=== PATIENT | male | born 1955 | race African-American/Black ===

== ENCOUNTER 2020-05-03 00:41 | Outpatient (CLI) | payer OTHER, SELFPAY ==
[2020-05-03 21:18] LABS: SARS-CoV-2 RNA PCR Negative
== END 2020-05-03 00:42 | disposition home or self-care (01) ==
LOC: ANHCOVIDDT 00:41
PROVIDERS: PCP Internal Medicine; Visit Provider Internal Medicine Gastroenterology
DX: Z01.812 Encounter for preprocedural laboratory examination (principal); Z20.828 Contact with and (suspected) exposure to other viral communicable diseases
CPT/HCPCS: 87635; C9803; U0003

== ENCOUNTER 2020-05-07 02:04 | Day surgery (SDC) | payer OTHER, SELFPAY ==
[2020-04-30 12:55] VITALS: BMI 33.2
--- NOTE | 2020-05-07 06:57 | WPDANESEPPF ---
Anes - Initial Pre Proc Eval Procedure: Operation Date: 05/07/20 09:00 Proposed Procedures p Screening Colonoscopy - Kevin Parnell MD Date/Time: 05/07/20 06:57 Surgeon: Kevin Parnell MD Pre Op Diagnosis: Neoplasm Screening Patient Data Age: 65 Gender: M Height: 1.83 m Weight: 111 kg Allergies Allergy/AdvReac Type Severity Reaction Status Date / Time No Known Allergies Allergy Mild Verified 05/07/20 07:50 Home Medications Medication Instructions Recorded Confirmed Type aspirin 81 mg tablet,delayed 81 mg PO DAILY 07/05/19 04/30/20 History release amlodipine 10 mg tablet 10 mg PO DAILY #90 tablet 12/19/19 04/30/20 Rx atorvastatin 40 mg tablet 40 mg PO DAILY #90 tablet 12/19/19 04/30/20 Rx glipizide 5 mg tablet 5 mg PO DAILY #90 tablet 12/19/19 04/30/20 Rx lisinopril 40 mg tablet 40 mg PO DAILY #90 tablet 12/19/19 04/30/20 Rx blood sugar diagnostic #100 each 02/12/20 03/18/20 Rx clonidine 0.2 mg/24 hr weekly 1 patch TRANSDERM WEEKLY #4 each 03/18/20 04/30/20 Rx transdermal patch ertugliflozin 5 mg tablet 5 mg PO QAM #30 tablet 03/18/20 04/30/20 Rx tadalafil 5 mg tablet 5 mg PO DAILY PRN 03/18/20 04/30/20 History metoprolol tartrate 100 mg tablet 100 mg PO Q12H #180 tablet 04/02/20 04/30/20 Rx peg 3350 240 gram-electrolytes 240 ml PO Q10M #4000 ml 04/04/20 Rx 22.72 gram-6.72 g-5.84 g powdr for soln furosemide 40 mg PO DAILY 04/30/20 04/30/20 History semaglutide [Rybelsus] 3 mg PO DAILY 04/30/20 04/30/20 History Patient hx anesthesia problems: none Family hx anesthesia problems: none PMFSH Past Medical History Medical History (Updated 05/07/20 @ 06:58 by Lyndon Moreno MD) BPH (benign prostatic hyperplasia) Cerebrovascular accident (CVA) Dyslipidemia associated with type 2 diabetes mellitus Obesity TSERING (obstructive sleep apnea) Resistant hypertension Type 2 diabetes mellitus without complication, without long-term current use of insulin Family History Family History Mother Diabetes mellitus, Onset Age: 67 Social History Social History Smoking status: Never smoker Alcohol intake: never Substance use: never Substance use type: does not use Living arrangements: with family Spiritual care concerns: No Anes - Eval Final PreProcedure Day of Procedure 05/07/20 06:57 Patient weight: obese Heart: regular rate and rhythm Lungs: clear to auscultation and normal air movement Airway: Mallampati scale class II Neurological: alert and oriented Last oral intake: >/= 8 hours ASA classification: III Emergent: no Anesthetic plan: proceed Anesthesia type and monitoring: general GIVS Informed Consent: The patient's anesthetic plan and its attendant risks and benefits were discussed with the patient/family/POA. Questions were solicited and answers provided to the satisfaction of the patient/family/POA.
[2020-05-07 07:52] VITALS: BP 178/93; PULSE 83; RESP 16; TEMP 37.1; O2SAT 100; BMI 33.0
[2020-05-07] MEDS: LACTATED RINGERS 1,000 ML 150 ML IV CONT (08:16)
[2020-05-07 08:21] LABS: Glucose Point of Care 162 (65-105)
--- NOTE | 2020-05-07 09:08 | PM.HPGS ---
History of Present Illness History of Present Illness Consent: Risks, benefits, and alternatives have been discussed and questions answered. Patient agrees to proceed with procedure. Chief complaint: Neoplasm Screening Narrative: Ron Kwon is a 65 year old male with history of colon polyps, due to have another colonoscopy Review of Systems Constitutional: Constitutional: Denies headache(s) and Denies weakness Eyes: Eyes: Denies blurry vision ENT: Reports Normal hearing present, Denies headache(s) and Denies neck pain Cardiovascular: Cardiovascular: Denies chest pain and Denies dyspnea Respiratory: Respiratory: Denies dyspnea Gastrointestinal: Gastrointestinal: Reports no additional gastrointestinal complaints Genitourinary: Genitourinary: Denies dysuria Musculoskeletal: Musculoskeletal: Denies neck pain Integumentary/Breasts: Skin/Breast: Denies dry skin Neurologic: Reports Normal hearing present, Denies headache(s) and Denies weakness Psychiatric: Psychiatric: Denies anxiety Endocrine: Endocrine: Denies change in body appearance Hematologic/Lymphatic: Hematologic/Lymphatic: Denies easy bleeding Allergic/Immunologic: Allergic/Immunologic: Denies urticaria PMFSH Past Medical History Medical History (Updated 05/07/20 @ 09:08 by Kevin Parnell MD) Adenomatous colon polyp BPH (benign prostatic hyperplasia) Cerebrovascular accident (CVA) Dyslipidemia associated with type 2 diabetes mellitus Obesity TSERING (obstructive sleep apnea) Resistant hypertension Type 2 diabetes mellitus without complication, without long-term current use of insulin Family History Family History Mother Diabetes mellitus, Onset Age: 67 Social History Social History Smoking status: Never smoker Alcohol intake: never Substance use: never Substance use type: does not use Living arrangements: with family Spiritual care concerns: No Meds Home Medications and Allergies Home Medications Medication Instructions Recorded Confirmed Type aspirin 81 mg tablet,delayed 81 mg PO DAILY 07/05/19 04/30/20 History release amlodipine 10 mg tablet 10 mg PO DAILY #90 tablet 12/19/19 04/30/20 Rx atorvastatin 40 mg tablet 40 mg PO DAILY #90 tablet 12/19/19 04/30/20 Rx glipizide 5 mg tablet 5 mg PO DAILY #90 tablet 12/19/19 04/30/20 Rx lisinopril 40 mg tablet 40 mg PO DAILY #90 tablet 12/19/19 04/30/20 Rx blood sugar diagnostic #100 each 02/12/20 03/18/20 Rx clonidine 0.2 mg/24 hr weekly 1 patch TRANSDERM WEEKLY #4 each 03/18/20 04/30/20 Rx transdermal patch ertugliflozin 5 mg tablet 5 mg PO QAM #30 tablet 03/18/20 04/30/20 Rx tadalafil 5 mg tablet 5 mg PO DAILY PRN 03/18/20 04/30/20 History metoprolol tartrate 100 mg tablet 100 mg PO Q12H #180 tablet 04/02/20 04/30/20 Rx peg 3350 240 gram-electrolytes 240 ml PO Q10M #4000 ml 04/04/20 Rx 22.72 gram-6.72 g-5.84 g powdr for soln furosemide 40 mg PO DAILY 04/30/20 04/30/20 History semaglutide [Rybelsus] 3 mg PO DAILY 04/30/20 04/30/20 History Allergies Allergy/AdvReac Type Severity Reaction Status Date / Time No Known Allergies Allergy Mild Verified 05/07/20 07:50 Vital Signs Vital Signs - 24 hr 05/07/20 07:52 Temperature 98.8 F Pulse Rate 83 Respiratory Rate 16 Blood Pressure 178/93 H Pulse Oximetry 100 Exam Const: General: comfortable and no acute distress HENMT: General nose exam: Normal nares present Eyes: General: appearance normal, both eyes and all related structures Neck: Neck: no JVD Resp: Auscultation: clear to auscultation bilaterally Cardio: Rate: regular rate Rhythm: regular rhythm GI: Inspection: non-distended GI Palp: Yes Soft to palpation Skin: General skin exam: normal color Neuro: General: gait normal Speech: normal speech Extrem: General: normal to inspection Psych: Mental
[2020-05-07 09:47] VITALS: BP 98/65; PULSE 79; RESP 16; O2SAT 97
[2020-05-07 09:57] VITALS: BP 116/74; PULSE 76; RESP 16; O2SAT 97
[2020-05-07 10:05] VITALS: BP 121/76; PULSE 73; RESP 16; O2SAT 96
== END 2020-05-07 10:26 | disposition home or self-care (01) ==
PROVIDERS: PCP Internal Medicine; Visit Provider Internal Medicine Gastroenterology
PROC: 0DJD8ZZ Inspection of Lower Intestinal Tract, Via Natural or Artificial Opening Endoscopic (ICD-10-PCS; CPT 45378; principal; 2020-05-07 09:00)
DX: Z12.11 Encounter for screening for malignant neoplasm of colon (principal); K63.5 Polyp of colon; E78.5 Hyperlipidemia, unspecified; I10 Essential (primary) hypertension; E11.9 Type 2 diabetes mellitus without complications; G47.33 Obstructive sleep apnea (adult) (pediatric); N40.0 Benign prostatic hyperplasia without lower urinary tract symptoms; Z86.73 Personal history of transient ischemic attack (TIA), and cerebral infarction without residual deficits; E66.9 Obesity, unspecified; Z68.33 Body mass index [BMI] 33.0-33.9, adult; Z79.84 Long term (current) use of oral hypoglycemic drugs; Z79.82 Long term (current) use of aspirin
CPT/HCPCS: 45385; 88305; J2704; J7120

== ENCOUNTER 2020-05-14 14:48 | Outpatient (CLI) | payer OTHER, SELFPAY ==
--- NOTE | ~2020-05-14 | US_ITS ---
EXAMINATION: US renal BI DATE: 05/14/2020 15:22 INDICATION: Stage IIIa chronic kidney disease TECHNIQUE: Multiple ultrasound grayscale images of the kidneys were obtained. COMPARISON: 03/20/2019 FINDINGS: The right kidney measures 11.8 x 5.7 x 5.9 cm. The left kidney measures 11.0 x 5.4 x 5.9 cm. The kidn eys demonstrate normal echogenicity with unchanged mild bilateral cortical thinning. There is no hydr onephrosis in either kidney. No stones identified. The incompletely distended bladder is normal. IMPRESSION: 1. Diffuse mild renal cortical thinning and 1.6 cm anechoic cysts at both the left and right kidneys . No hydronephrosis. Reviewed, dictated and finalized at location . [facility] IMPRESSION: 1. Diffuse mild renal cortical thinning and 1.6 cm anechoic cysts at both the left and right kidneys. No hydronephrosis.
== END 2020-05-14 14:49 ==
PROVIDERS: PCP Internal Medicine; Visit Provider Internal Medicine Nephrology
DX: N18.31 Chronic kidney disease, stage 3a (principal)
CPT/HCPCS: 76775

== ENCOUNTER 2024-11-10 08:53 | Outpatient (CLI) | payer MEDICARE, SELFPAY ==
--- OUTSIDE RECORDS SUMMARY | 2024-11-10 08:56 | XMS_ITS | Clinical Summary ---
Author Organization [facility] Address [address] [place] [id number] Phone Care Team Providers Care Second Language Tutor Name Role Phone Thomas Frost MD Primary Care Provider [phone] Allergies No known active allergies Medications allopurinol (ZYLOPRIM) 100 MG tablet 11/12/2014 Active amLODIPine (NORVASC) 10 MG tablet 03/20/2020 Active glipiZIDE (GLUCOTROL) 5 MG tablet 03/20/2020 Active Contour Next Test test strip 02/12/2020 Act irina lisinopril (PRINIVIL) 40 MG tablet 03/20/2020 Active metFORMIN (GLUMETZA) 500 MG 24 hr tablet Take 1,000 mg by mouth 12/02/2018 Active Rybelsus 3 MG tablet 05/12/2020 Active atorvastatin (LIPITOR) 80 MG tablet Take 80 mg by mouth 1 (one) time each day 10/14/2020 Active D3-50 1.25 MG (59475 UT) capsule TAKE 1 CAPSULE BY MOUTH WEEKLY 09/08/2020 Active metoprolol tartrate (LOPRESSOR) 100 MG tablet 09/29/2020 Active tadalafil (CIALIS) 5 MG tablet Take 5 mg by mouth 1 (one) time each day Active cloNIDine 0.3 MG/24HR patch weekly 05/19/2021 Active furosemide (LASIX) 40 MG tablet Take 1 tablet (40 mg total) by mouth 2 (two) times a day 180 tablet 3 06/01/2021 Active Active Problems Problem Noted Date Diagnosed Date Stage 3a chronic kidney disease 06/19/2020 Type 2 diabetes mellitus without complication Obstructive sleep apnea 04/18/2019 Overview (05/11/2020): Last Assessment & Plan: Reviewed and discussed with the patient his sleep study results. Reviewed with the patient that he has moderate to severe obstructive sleep apnea. Reviewed with the patient treatment with APAP 7-15 cm of water pressure. Discussed with the patient his goal of therapy will be to use the APAP nightly for 7-9 hours and with any naps. Reviewed and discussed risk of untreated sleep apnea to include increased risk of hypertension, heart attack, stroke, irregular heart rhythm, congestive heart failure, diabetes, weight gain and fatigue.. Orders for equipment will be sent to [facility] Home Care. Essential hypertension 03/28/2019 Overview (05/11/2020): Last Assessment & Plan: Reviewed and discussed with the patient his sleep study results. Reviewed with the patient that he has moderate to severe obstructive sleep apnea. Reviewed with the patient treatment with APAP 7-15 cm of water pressure. Discussed with the patient his goal of therapy will be to use the APAP nightly for 7-9 hours and with any naps. Reviewed and discussed risk of untreated sleep apnea to include increased risk of hypertension, heart attack, stroke, irregular heart rhythm, congestive heart failure, diabetes, weight gain and fatigue.. Orders for equipment will be sent to [facility] Home Care. Stroke 03/28/2019 Hypertensive emergency 11/28/2018 Immunizations Immunization Administration Dates Next Due Fluzone High-Dose 04/14/2020 Influenza TIV (IM) 04/03/2018 Pneumococcal Conjugate 02/18/2015 Family History Medical History Relation Comments Kidney disease Neg Hx Social History Tobacco Use Types Packs/Day Years Used Date Smoking Tobacco: Never Smokeless Tobacco: Never Alcohol Use Standard Drinks/Week Comments Not Currently 0 (1 standard drink = 0.6 oz pur e alcohol) Sex and Gender Information Value Date Recorded Sex Assigned at Not on file Legal Sex Male 8:22 AM [facility] Gender Identity Not on file Sexual Orientation Not on file Last Filed Vital Signs Vital Sign Reading Time Taken Comments Blood Pressure 160/84 06/01/2021 11:03 AM DIRECTOR OF COMMUNITY EDUCATION Pulse 72 06/01/2021 11:03 AM DIRECTOR OF COMMUNITY EDUCATION Temperature 36.5 C (97.7 F) 06/01/2021 11:03 AM DIRECTOR OF COMMUNITY EDUCATION Respiratory Rate - - Oxygen Saturation - - Inhaled Oxygen Concentration - - Weight 112 kg (247 lb) 06/01/2021 11:03 AM DIRECTOR OF COMMUNITY EDUCATION Height 182.9 cm (6') 06/01/2021 11:03 AM DIRECTOR OF COMMUNITY EDUCATION Body Mass Index 33.5 06/01/2021 11:03 AM DIRECTOR OF COMMUNITY EDUCATION Plan of Treatment Health Maintenance Due Date Last Done Comments Pneumococcal PPSV23/PCV13 65 + Years / Low and Medium Risk (1 of 4 - PCV) 2003 Influenza Vaccine (Season Ended) 2025 04/03/20 18 [place] [address] Care Teams Second Language Tutor Relationship Specialty Start Date End Date Thomas Frost MD [address] [place] [id number] PCP - General Family Medicine 05/05/20
--- OUTSIDE RECORDS SUMMARY | 2024-11-10 08:56 | XMS_ITS | Clinical Summary ---
Author Organization [facility] Address [address] [place] [address] Care Team Providers Care Career Law Clerk Name Role Phone Manoj Franco NP Primary Care Provider [phone] Allergies No known active allergies Medications atorvastatin (LIPITOR) 40 mg tablet 03/08/2019 Active cloNIDine (CATAPRES-TTS) 0.1 mg/24 hr 02/28/2019 Active amLODIPine (NORVASC) 10 mg tablet 03/08/2019 Active glipiZIDE (GLUCOTROL) 5 mg tablet 03/21/2019 Active furosemide (LASIX) 40 mg tablet 03/08/2019 Active lisinopril (PRINIVIL,ZESTRI L) 20 mg tablet 12/25/2018 Act irina metoprolol (LOPRESSOR) 50 mg tablet 03/19/2019 Active UNABLE TO FIND Asprin Activ e JANUVIA 50 mg tablet 02/28/2019 Active blood glucose diagnostic (ONETOUCH ULTRA BLUE TEST STRIP) strip 10/01/2014 Active aspirin 325 mg tablet Take 325 mg by mouth daily 12/01/2018 Active amlodipine-atorv astatin (CADUET) 10-40 mg per tablet 11/12/2014 Active allopurinol (ZYLOPRIM) 100 mg tablet 11/12/2014 Active Active Problems Problem Noted Date Diagnosed Date Type 2 diabetes mellitus wit hout complication, with long-term current use of insulin 04/24/2019 Other vitreous opacities, bilateral 04/24/2019 Age-related nuclear cataract, bilateral 04/24/20 19 Class 1 obesity due to exces s calories with serious comorbidity and body mass index (BMI) of 32.0 to 32.9 in adult 04/24/2019 Assessment & Plan (04/24/2019 12:28 PM MARKET RESEARCH ASSOCIATE): Reviewed and discussed with the patient his [...] Orders for equipment will be sent to [facility] Home Care. Obstructive sleep apnea 04/18/2019 Assessment & Plan (04/24/2019 12:28 PM MARKET RESEARCH ASSOCIATE): Reviewed and discussed with the patient his [...] Orders for equipment will be sent to [facility] Home Care. Essential hypertension 03/28/2019 Assessment & Plan (04/24/2019 12:28 PM MARKET RESEARCH ASSOCIATE): Reviewed and discussed with the patient his [...] Orders for equipment will be sent to [facility] Home Care. Stroke 03/28/2019 Slurred speech 11/28/2018 Hypertensive emergency 11/28/2018 Facial droop 11/28/2018 Stiffness of joint, hand 11/21/2014 Pseudogout of hand 11/21/2014 Bilateral carpal tunnel syndrome 11/21/2014 Arthritis, wrist 11/21/2014 Resolved Problems Problem Noted Date Diagnosed Date Resolved Date BMI 33.0-33.9,adult 03/28/2019 04/24/20 19 Medical History Medical History Date Comments Diabetes mellitus (HCC) Hypertension Stroke (HCC) 11/2018 Social History Tobacco Use Types Packs/Day Years Used Date Smoking Tobacco: Never Smokeless Tobacco: Never Alcohol Use Standard Drinks/Week Comments Yes 0 (1 standard drink = 0.6 oz pur e alcohol) once a week/ Personal Safety Answer Date Recorded Getting School Help Needed Not on file 07/09 Sex and Gender Information Value Date Recorded Sex Assigned at Not on file Legal Sex Male 4:56 AM MARKET RESEARCH ASSOCIATE Gender Identity Not on file Sexual Orientation Not on file Obstetrics History Last Filed Vital Signs Vital Sign Reading Time Taken Comments Blood Pressure 140/90 04/24/2019 11:51 AM MARKET RESEARCH ASSOCIATE Pulse 73 04/24/2019 11:51 AM MARKET RESEARCH ASSOCIATE Temperature 36.9 C (98.4 F) 04/24/2019 11:51 AM MARKET RESEARCH ASSOCIATE Respiratory Rate 15 04/24/2019 11:51 AM MARKET RESEARCH ASSOCIATE Oxygen Saturation 97% 04/24/2019 11:51 AM MARKET RESEARCH ASSOCIATE Inhaled Oxygen Concentration - - Weight 108.9 kg (240 lb) 04/24/2019 11:51 AM MARKET RESEARCH ASSOCIATE Height 182.9 cm (6') 04/24/2019 11:51 AM MARKET RESEARCH ASSOCIATE Body Mass Index 32.55 04/24/2019 11:51 AM MARKET RESEARCH ASSOCIATE Plan of Treatment Health Maintenance Due Date Last Done Comments Albumin Creatinine Ratio, Urine 1953 Colon Cancer Screening-Colonoscopy 1953 Depression Screening 1953 Fall Risk Assessment 1953 Hepatitis C Screening 1953 Prostate Cancer Screening-PSA 1953 eGFR 1953 Dilated Eye Exam 1953 Foot Exam 1953 DTaP/Tdap/Td Vaccine (1 - Tdap) 01/21/1964 Hepatitis B Screening 1971 Zoster Vaccine (1 of 2) 2003 Lipid Panel 08/11/2014 08/11/2013 Pneumococcal vaccine 65+ (2 of 2 - PPSV23) 04/15/2015 02/18/2015 Abdominal Aortic Aneurysm (A AA) Screen 2018 Well Visit 65+ 2018 Hemoglobin A1C 05/31/2019 11/29/2018 Covid-19 Vaccine ( season) 2024 01/11/2022, 05/15/2021, 08/25/2020 Influenza Vaccine (Season Ended) 2025 06/02/20 21, 04/03/2018 Procedures Procedure Name Priority Date/Time Associated Diagnosis Comments SERUM LIPID PANEL Routine 08/11/2013 2:5 7 AM MARKET RESEARCH ASSOCIATE from Last 3 Months or Most Recently Relevant to Health Maintenance Results * (ABNORMAL) Serum lipid panel (08/11/2013 2:57 AM MARKET RESEARCH ASSOCIATE) Cholesterol 158 0 - 200 mg/dl HISTORICAL RESULTS Comment: Interpretive Data Desirable: <200 mg/dL Borderline high: 200-239 mg/dL High: >240 mg/dL Literature Reference: National Cholesterol Education Program (NCEP) Expert Panel on Detection, Evaluation, and Treatment of High Blood Cholesterol in Adults (Adult Treatment Panel III). Circulation 2004; 110:227. Current interpretive data was last revised on 2005. HDL 37(L) 40 - 199 mg/dl HISTORICAL RESULTS Comment: Interpretive Data Less than 40 mg/dL - low; A major risk factor for heart disease. Greater than or equal to 60 mg/dL - High; considered protective of heart disease. Literature Reference: See Cholesterol Current interpretive data was last revised on 2008. LDL 96 0 - 129 mg/dl HISTORICAL RESULTS Comment: Interpretive Data Optimal: < 100 mg/dL Near Optimal: 100 - 129 mg/dL Borderline High: 130 - 159 mg/dL High: > 160 mg/dL Literature Reference: See Cholesterol Current interpretive data was last revised on 06. Non-HDL cholesterol, calculated 121 mg/dl HISTORICAL RESULTS Comment: Interpretive Data When triglycerides are >200 mg/dL, non-HDL C is a secondary target of therapy, with a goal 30 mg/dL higher than the identified LDL-C goal. Reference: See Cholesterol Reference. Current interpretive data was last revised 2012. Triglycerides 126 0 - 150 mg/dl HISTORICAL RESULTS Comment: Interpretive Data Desirable: < 150 mg/dL Borderline High: 150 - 199 mg/dL High: > 200 mg/dL Literature Reference: See Cholesterol Current interpretive data was last revised on 06. Serum 08/11/2013 2:57 AM MARKET RESEARCH ASSOCIATE Dago Lacey MD LAB BLOOD ORDERABLES Final R esult HISTORICAL RESULTS from Last 3 Months or Most Recently Relevant to Health Maintenance Insurance HEALTHCARE MDCR HMO [facility] Address: [address] [address] [place] [address] [facility] MDCR H[facility] Address: [address] [address] [place] [address] Care Teams Career Law Clerk Relationship Specialty Start Date End Date Manoj Franco NP [address] [place] [address] PCP - General Nurse Practitioner 03/11/22
--- OUTSIDE RECORDS SUMMARY | 2024-11-10 08:56 | XMS_ITS | Referral Summary ---
Author Organization [address] Address [address] [place] [address] Care Team Providers Care Lead Atg Developer Name Role Phone Manoj Franco NP Primary Care Provider Allergies No known active allergies Medications atorvastatin [...] 04/24/2019 Assessment & Plan (04/24/2019 12:28 PM CONTROL ELECTRICIAN): Reviewed and discussed with the patient his [...] Orders for equipment will be sent to [facility] Home Care. Obstructive sleep apnea 04/18/2019 Assessment & Plan (04/24/2019 12:28 PM CONTROL ELECTRICIAN): Reviewed and discussed with the patient his [...] Orders for equipment will be sent to [facility] Home Care. Essential hypertension 03/28/2019 Assessment & Plan (04/24/2019 12:28 PM CONTROL ELECTRICIAN): Reviewed and discussed with the patient his [...] Orders for equipment will be sent to [facility] Home Care. Stroke 03/28/2019 Slurred speech 11/28/2018 Hypertensive emergency 11/28/2018 Facial droop 11/28/2018 Stiffness of joint, hand 11/21/2014 Pseudogout of hand 11/21/2014 Bilateral carpal tunnel syndrome 11/21/2014 Arthritis, wrist 11/21/2014 Resolved Problems Problem Noted Date Diagnosed Date Resolved Date BMI 33.0-33.9,adult 03/28/2019 04/24/20 19 Social History Tobacco Use Types Packs/Day Years [...] on file Legal Sex Male 4:56 AM CONTROL ELECTRICIAN Gender Identity Not on file Sexual Orientation Not on file Last Filed Vital Signs Vital Sign Reading Time Taken Comments Blood Pressure 140/90 04/24/2019 11:51 AM CONTROL ELECTRICIAN Pulse 73 04/24/2019 11:51 AM CONTROL ELECTRICIAN Temperature 36.9 C (98.4 F) 04/24/2019 11:51 AM CONTROL ELECTRICIAN Respiratory Rate 15 04/24/2019 11:51 AM CONTROL ELECTRICIAN Oxygen Saturation 97% 04/24/2019 11:51 AM CONTROL ELECTRICIAN Inhaled Oxygen Concentration - - Weight 108.9 kg (240 lb) 04/24/2019 11:51 AM CONTROL ELECTRICIAN Height 182.9 cm (6') 04/24/2019 11:51 AM CONTROL ELECTRICIAN Body Mass Index 32.55 04/24/2019 11:51 AM CONTROL ELECTRICIAN Plan of Treatment Not on file Procedures Procedure Name Priority Date/Time Associated Diagnosis Comments SERUM LIPID PANEL Routine 08/11/2013 2:5 7 AM CONTROL ELECTRICIAN from Last 3 Months or Most Recently Relevant to Health Maintenance Results * (ABNORMAL) Serum lipid panel (08/11/2013 2:57 AM CONTROL ELECTRICIAN) Cholesterol 158 0 - 200 mg/dl HISTORICAL [...] revised on 06. Serum 08/11/2013 2:57 AM CONTROL ELECTRICIAN us Dago Lacey MD LAB BLOOD ORDERABLES Final R esult HISTORICAL RESULTS from Last 3 Months or Most Recently Relevant to Health Maintenance Insurance [facility] R HMO REF R HMO REF Care Teams Lead Atg Developer Relationship Specialty Start Date End Date Manoj Franco NP [address] [place] [address] PCP - General Nurse Practitioner 03/11/22
--- OUTSIDE RECORDS SUMMARY | 2024-11-10 08:56 | XMS_ITS | CONTINUITY OF CARE DOCUMENT ---
Author Name andree candelario Address Unknown Organization [facility] Address [address] [place] [address] [address] [place] [address] Phone [phone] Care Team Providers Care Gemologist Name Role Phone Charles SOMERS, Yolanda Unavailable Gamaliel SOMERS, Shine Alba Unavailable [phone] INSURANCE PROVIDERS Payer name Policy type / Coverage type [place] [employer] party ID [facility] [id number] Other [id number]
--- OUTSIDE RECORDS SUMMARY | 2024-11-10 08:57 | XMS_ITS | Continuity of Care Document ---
Author Organization [facility] Address [address] [place] [address] Phone Care Team Providers Care Film Masker Name Role Phone Ivan SOMERS MD, Jose Unavailable Unavailab le Allergies, Adverse Reactions, Alerts Substance Reaction Status Criticality No Known Allergies Active No Inform ation Medications Medication Instructions Dosage Effective Dates (start - stop) Status Comments Januvia 25 mg tablet take 1 tablet by oral route every day 25 MG - Active ATORVASTATIN CALCIUM (unknown strength) take 1 tablet by oral route every day Not Available - Active furosemide (unknown strength) Not Available - Active METOPROLOL TARTRATE (unknown strength) take 1 tablet by oral route 2 times every day Not Available - Active LISINOPRIL (unknown strength) take 1 tablet by oral route every day Not Available - Active CLONIDINE HCL (unknown strength) infuse by continuous epidural route Not Available - Active ASPIRIN (unknown strength) chew 1 tablet by oral route 3 times every week Not Available - Active Procedures Procedure Date OFFICE/OUTPATIENT VISIT, NEW REFRACTION DILATED EXAM RIGHT EYE DILATED EXAM LEFT EYE ADMINISTRATION FEE Advance Directives Directive Yes / No Effective Date File Name No Information Encounters Encounter Description Practice Location Reason(s) For Visit Diagnoses Date Provider Providers Copied on Encounter OFFICE/OUTPAT IENT VISIT, [facility], [id number] [place] [address] [address], [place], [place], [id number], [place] tel:[phone] [facility] DM II check (chief complaint) blurry vision (chief complaint) stroke (chief complaint) Age-related nuclear cataract, bilateralType 2 diabetes mellitus without complication, with long-term current use of insulinOther vitreous opacities, bilateral Feb- 9 Ivan Garcia. [address], [address], [place], [place], [id number] , . tel: [phone] Referring Provider: Thomas Frost MD, [address], [place], [address]. tel:[phone] Family History Family Member Type Diagnosis Age At Onset Mother Problem (finding) Diabetes mellitus Payers Payer name Insurance type Covered republican ID Authoriza tion(s) [facility] 16 [id number] Social History Type Description Quantity Date Captured Comments Alcohol Use Details Caffeine Use Details Unknown Tobacco Use Status Current non-smoker 19 Smoking Status Never smoker Non-Smoking Tobacco Use Details : No Details Available : No Details Available Sex Male Chief Complaint And Reason For Visit From encounter dated '02/21/2019 14:30'. DM II check (chief complaint). Description: The 64 year old male presents for evaluation of DM II check in the right eye and left eye. It started about 10 year(s) ago. The symptom is constant. The condition is significant. The pt is followed by Dr Frost- jaden, AVG AB BS 90. The pt states his vision is blurry at time. blurry vision (chief complaint). Description: The patient is present for evaluation of blurry vision in the right eye and left eye. It started about 1 year(s) ago. It affects both near and far vision. The symptom is constant. The condition is significant. stroke (chief complaint). Description: The patient is present for evaluation of stroke in the righteye and left eye. It started about 3 month(s) ago. The symptom is constant. The condition is stable. The pt states in November 30 2018 he had a stroke. The pt states no VA changes. PCP Santosh is ref. Reason For Referral Reason For Referral No Information History Of Present Illness Encounter Date Complaint History Of Prese nt Illness DM II check The 64 year old male presents for evaluation of DM II check in the right eye and left eye. It started about 10 year(s) ago. The symptom is constant. The condition is significant. The pt is followed by Dr Frost- unknown, AVG AB BS 90. The pt states his vision is blurry at time. blurry vision The patient is p resent for evaluation of blurry vision in the right eye and left eye. It started about 1 year(s) ago. It affects both near and far vision. The symptom is constant. The condition is significant. stroke The patient is p resent for evaluation of stroke in the right eye and left eye. It started about 3 month(s) ago. The symptom is constant. The condition is stable. The pt states in November 30 2018 he had a stroke. The pt states no VA changes. PCP Santosh is ref. Functional Status Date Functional Assessmen t No Information Instructions Date Instruction Additional Infor mation Impression/Plan Related to Age-r elated nuclear cataract, bilateral Impression/Plan Related to Type 2 diabetes mellitus without complication, with long-term current use of insulin Impression/Plan Related to Other vitreous opacities, bilateral Assessments Type Assessment Date assessment Age-related nuclear cataract, bi lateral impression Age-related nuclear cataract, bi lateral: H25.13 assessment Type 2 diabetes ever itus without complication, with long-term current use of insulin impression Type 2 diabetes ever itus without complication, with long-term current use of insulin: E11.9.Last A1C unknown. Followed by Dr. Abreu assessment Other vitreous opacities, bilate ral impression Other vitreous opacities, bilate ral: H43.393 Patient Care Teams Name Effective Dates (start - stop) Status Members No Information
--- OUTSIDE RECORDS SUMMARY | 2024-11-10 08:57 | XMS_ITS | Clinical Summary ---
Author Organization [facility] Address [address] [place] [address] Care Team Providers Care Sand Mill Operator Facing Sand Name Role Phone Nancy Monzon MD Primary Care Provider [phone] Allergies No known active allergies Medications lisinopril (PRINIVIL) 20 mg tablet 11/12/2014 Active allopurinol (ZYLOPRIM) 100 mg tablet 11/12/2014 Active atenolol (TENORMIN) 50 mg tablet 11/12/2014 Active Amlodipine-Atorv astatin 10-40 mg tablet 11/12/2014 Active LEVITRA 20 mg tablet 11/13/2014 Active ONETOUCH ULTRA TEST Strip 10/01/2014 Active BD INSULIN PEN NEEDLE UF SHORT 31 X /16 Needle 10/21/2014 Active atorvastatin (LIPITOR) 80 mg tablet Take 80 mg by mouth daily. 10/14/2020 Active cloNIDine (EOEBUSZA-XZY-6) 0.3 mg/24 hr patch 05/19/2021 Active glipiZIDE (GLUCOTROL) 5 mg tablet 03/20/2020 Active semaglutide (Rybelsus) 3 mg Tablet 05/12/2020 Active testosterone 30 mg/actuation (1.5 mL) Solution in Metered Pump w/Romy 02/12/2020 Active tadalafil (CIALIS) 5 mg tablet Take 5 mg by mouth daily. 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 Stiffness of joint, hand 11/21/2014 Bilateral carpal tunnel syndrome 11/21/2014 Social History Tobacco Use Types Packs/Day Years Used Date Smoking Tobacco: Never Smokeless Tobacco: Never Alcohol Use Standard Drinks/Week Comments Yes 1 (1 standard drink = 0.6 oz pur e alcohol) Sex and Gender Information Value Date Recorded Sex Assigned at Not on file Legal Sex Male 10:05 AM CDT Gender Identity Not on file Sexual Orientation Not on file Last Filed Vital Signs Vital Sign Reading Time Taken Comments Blood Pressure 152/88 01/27/2022 1:30 PM CDT Pulse 70 01/27/2022 1:30 PM CDT Temperature 36.1 C (97 F) 01/27/2022 1:30 PM CDT Respiratory Rate 16 01/27/2022 1:30 PM CDT Oxygen Saturation 99% 01/27/2022 1:30 PM CDT Inhaled Oxygen Concentration - - Weight 99.8 kg (220 lb) 01/27/2022 1:30 PM CDT Height 176.5 cm (5' 9.5 ) 01/27/2022 1:30 PM CDT Body Mass Index 32.02 01/27/2022 1:30 PM CDT Plan of Treatment Health Maintenance Due Date Last Done Comments DIABETES ANNUAL FOOT EXAM 1971 DIABETES ANNUAL RETINAL EXAM 1971 DIABETES MICROALBUMIN ANNUAL SCREEN 1971 LDL CHOLESTEROL ANNUAL 1971 DTAP/TDAP/TD VACCINES (1 - Tdap) 01/21/1972 PNEUMOCOCCAL VACCINE 50+ YEARS (1 of 2 - PCV) 01/20/19 72 02/18/2015 COLORECTAL SCREENING 1998 Colorectal Cancer Screening 1998 FIT-DNA Q 3 years 1998 FIT/FOBT Q 1 year 1998 Flex Sig/CT Colonography Q 5 years 1998 ZOSTER VACCINE (1 of 2) 2003 RSV VACCINE (60+ or ) (1 - Risk 60-74 years 1-dose series) 2013 DIABETES HBA1C Q 6 MONTHS 05/31/2019 11/29/2018 INFLUENZA VACCINE (#1) 2024 04/03/2018 Insurance Care Teams Sand Mill Operator Facing Sand Relationship Specialty Start Date End Date Nancy Monzon MD PCP - General Family Practice 11/21/14
--- OUTSIDE RECORDS SUMMARY | 2024-11-10 08:57 | XMS_ITS | Clinical Summary ---
Author Organization [facility] Address [address] [place] [address] Care Team Providers Care Diesel Engine Mechanic Apprentice Name Role Phone Rahul Devine MD Primary Care Provider [phone] Source Comments [facility],non-owned Affiliates and Associated Physician Practices is amultiple site organization consisting of ambulatory clinics and hospital sitesin [place], [place], [place] and [place]. This disclosure is being madepursuant to the Care Everywhere program and may not contain all information available regarding this patient. Last updated 18.[facility] Allergies No known active allergies Medications * Be aware that medications may not be up to date on this document. Alwaysverify current medications with the patient. blood glucose (MARTINA CONTOUR NEXT TEST) test strip Use 1 strip once daily 25 strip 9 Active lancets Use 1 Each once daily 1 Box 9 Active atorvastatin (LIPITOR) 40 MG tablet Take 1 tablet by mouth at bedtime 30 tablet 9 Active metoprolol tartrate (LOPRESSOR) 50 MG tablet Take 1 tablet by mouth 2 times daily 60 tablet 9 Active amLODIPine (NORVASC) 10 MG tablet Take 1 tablet by mouth once daily 30 tablet 9 Active lisinopril (PRINIVIL; ZESTRIL) 20 MG tablet Take 1 tablet by mouth once daily 30 tablet 9 Active glipiZIDE (GLUCOTROL) 10 MG tablet Take 1 tablet by mouth 2 times daily,before breakfast and supper 60 tablet 9 Active cloNIDine (Catapres) 0.3 MG/24HR patch APPLY 1 PATCH ONCE WEEKLY 4 Active tadalafil (Cialis) 5 MG tablet Take 1 (one) tablet by mouth once daily Active Active Problems Problem Noted Date Diagnosed Date Slurred speech 11/28/2018 Facial droop 11/28/2018 Hypertensive emergency 11/28/2018 Social History Tobacco Use Types Packs/Day Years Used Date Smoking Tobacco: Never Smokeless Tobacco: Never Alcohol Use Standard Drinks/Week Comments No 0 (1 standard drink = 0.6 oz pur e alcohol) Sex and Gender Information Value Date Recorded Sex Assigned at Not on file Legal Sex Male 5:40 PM CDT Gender Identity Not on file Sexual Orientation Not on file Last Filed Vital Signs Vital Sign Reading Time Taken Comments Blood Pressure 147/80 08/01/2024 4:32 PM RAISIN WASHER Pulse 68 08/01/2024 4:29 PM RAISIN WASHER Temperature 36.7 C (98.1 F) 08/01/2024 4:29 PM RAISIN WASHER Respiratory Rate 18 08/01/2024 4:29 PM RAISIN WASHER Oxygen Saturation 99% 08/01/2024 4:29 PM RAISIN WASHER Inhaled Oxygen Concentration - - Weight 95.3 kg (210 lb) 08/01/2024 4:29 PM RAISIN WASHER Height 182.9 cm (6') 08/01/2024 4:29 PM RAISIN WASHER Body Mass Index 28.48 08/01/2024 4:29 PM RAISIN WASHER Plan of Treatment Health Maintenance Due Date Last Done Comments COLOGUARD (AGES 45-75) - COLON CA SCREENING 1953 COLON MONITORING 1953 COLONOSCOPY - COLON CA SCREENING 1953 CT COLONOGRAPHY - COLON CA SCREENING 1953 Colorectal Cancer Screening 1953 FIT - COLON CA SCREENING 1953 FLEX SIG - COLON CA SCREENING 1953 HEPATITIS C SCREENING 01/16/1971 DTAP/TDAP/TD VACCINES (1 - Tdap) 01/21/1972 PNEUMOCOCCAL VACCINE 50+ (1 of 1 - PCV) 2003 ZOSTER VACCINE (1 of 2) 2003 DEPRESSION SCREENING 06/20/2024 MEDICARE AWV CALENDAR YEAR 2024 COVID-19 VACCINE ( season) 2024 03/29/2024, 08/14/2023, 04/25/2022, Additional history exists Respiratory Syncytial Virus (RSV) Vaccine Pt: or over 60 yrs (1 - 1-dose 75+ series) 01/21/2028 INFLUENZA VACCINE Completed 04/09/2024, , 04/25/2022, Additional history exists HEPATITIS B VACCINE Aged Out No longe r eligible based on patient's age to complete this topic HIB VACCINE Aged Out No longer eligi ble based on patient's age to complete this topic HPV VACCINE Aged Out No longer eligi ble based on patient's age to complete this topic MENINGOCOCCAL (Group B) VACCINE SHARED DECISION-MAKING Aged Out No longer eligible based on patient's age to complete this topic MENINGOCOCCAL GROUPS A/C/Y/W VACCINE Aged Out No longer eligible based on patient's age to complete this topic Insurance [employer] MANAGED MEDIC[place] [address] [id number] Advance Directives * Full Code (Latest Code Status on File) Date Activated Date Inactivated Comments 11/28/2018 9:26 PM 11/30/2018 9:01 PM * Full Code Date Activated Date Inactivated Comments 11/28/2018 7:27 PM 11/28/2018 9:26 PM Care Teams Diesel Engine Mechanic Apprentice Relationship Specialty Start Date End Date Rahul Devine MD [address] [place] [address] PCP - General Family Medicine 08/01/24
[2024-11-10 09:21] LABS: Basophils Percent Auto 0.6 % (0.2-1.2); Eosinophils Absolute Auto 0.1 K/mm3 (0-0.3); Eosinophils Percent Auto 1.6 % (0-4.4); Hematocrit 50.5 % (42.0-52.0); Hemoglobin 16.8 g/dL (14.0-18.0); Immature Granulocyte Absolute 0.03 K/mm3 (0.00-0.031); Immature Granulocyte Percent A 0.6 % (0-0.5); Lymphocytes Absolute Auto 1.23 K/mm3 (0.9-3.2); Lymphocytes Percent Auto 24.2 % (18.3-44.2); Mean Corpuscular HGB Conc 33.3 g/dl (32-36); Mean Corpuscular Hemoglobin 30.2 pg (26-34); Mean Corpuscular Volume 90.7 fl (80-100); Mean Platelet Volume 9.3 fl (7.4-10.4); Monocytes Absolute Auto 0.5 K/mm3 (0.1-0.6); Monocytes Percent Auto 9.4 % (2.6-8.5); Neutrophils Absolute Auto 3.2 K/mm3 (1.3-6.7); Neutrophils Percent Auto 63.6 % (45.5-73.1); Platelet Count Result 201 k/mm3 (150-375); Red Blood Count 5.57 M/mm3 (4.6-6.20); Red Cell Distribution Width 12.3 % (11.5-14.5); White Blood Count 5.1 K/mm3 (4.5-10.0)
[2024-11-10 09:30] LABS: Alanine Aminotransferase 42 U/L (6-50); Albumin Level 3.8 g/dL (3.5-5.1); Alkaline Phosphatase 68 U/L (38-126); Anion Gap 3 mmol/L (4-12); Aspartate Amino Transferase 52 U/L (17-59); Bilirubin,Total 0.9 mg/dL (0.2-1.3); Blood Urea Nitrogen 20 mg/dL (9-20); Calcium 8.7 mg/dL (8.4-10.2); Carbon Dioxide 31 mmol/L (22-30); Chloride 107 mmol/L (98-107); Cholesterol 185 mg/dL (0-200); Estimated Glomerular Filt Rate 47; Glucose 104 mg/dL (65-110); HDL Direct 49 mg/dL; Sodium 141 mmol/L (137-145); Triglycerides 67 mg/dL (<150)
[2024-11-10 09:41] LABS: LDL Cholesterol Direct 99 mg/dL
[2024-11-10 10:01] LABS: Prostate Specific Antigen 0.9 ng/mL (< OR = 4.0)
[2024-11-10 10:09] LABS: Vitamin D 25 Hydroxy < 12.8 ng/mL
[2024-11-14 09:13] LABS: Testosterone Total 632 ng/dL (250-1100)
== END 2024-11-10 08:54 | disposition home or self-care (01) ==
PROVIDERS: PCP Family Medicine; Visit Provider Family Medicine
DX: R68.82 Decreased libido (principal); N40.0 Benign prostatic hyperplasia without lower urinary tract symptoms; G47.33 Obstructive sleep apnea (adult) (pediatric); Z12.11 Encounter for screening for malignant neoplasm of colon; D75.1 Secondary polycythemia; I12.9 Hypertensive chronic kidney disease with stage 1 through stage 4 chronic kidney disease, or unspecified chronic kidney disease; N18.32 Chronic kidney disease, stage 3b; E11.9 Type 2 diabetes mellitus without complications; I63.9 Cerebral infarction, unspecified; Z12.5 Encounter for screening for malignant neoplasm of prostate
CPT/HCPCS: 36415; 80053; 80061; 82306; 82607; 83036; 84153; 84403; 85025; G0103